=== PATIENT | male | born 1995 | race Caucasian/White ===

== ENCOUNTER 2023-05-31 12:49 | Outpatient (OUT) | payer BC, SELFPAY ==
--- NOTE | 2023-05-31 12:56 | US_ITS ---
The [address] [address] Patient Name: GRAY GOMEZ MRN: [id number] date: 1995 Sex: M Assigned Patient Location: Current Patient Location: Accession/Order Number: [id number] Exam Date: 05/31/2023 13:00 Report Date: 06/01/2023 04:26 At the request of: SHARMILA MCDOWELL Procedure: US scrotum EXAMINATION: US scrotum HISTORY: Testicular Pain ; lump superior to right testicle for 2 months; bursectomy 8 months ago COMPARISON: No relevant comparison available. TECHNIQUE: High-resolution sonographic imaging of the scrotum and contents was performed. FINDINGS: RIGHT: TESTICLE: Homogeneous echotexture. No visible mass. Color Doppler flow is present. Spectral Doppler demonstrates normal arterial waveform and flow, 4/2 cm/s (PSV/EDV), and normal venous wave flow averaging 2 cm/s. EPIDIDYMIS: Incidental 5 mm cyst within head of epididymis. OTHER: Within the inguinal regions cephalad to the testicle is an irregular heterogeneous hypoechoic 1.0 x 0.8 x 0.8 cm area; possibly scarring. LEFT: TESTICLE: Homogeneous echotexture. No visible mass. Color Doppler flow is present. Spectral Doppler demonstrates arterial waveform and flow, 3/2 cm/s (PSV/EDV), and normal venous flow averaging 1 cm/s. EPIDIDYMIS: Normal size and echogenicity. OTHER: Trace amount of free fluid. US/US scrotum IMPRESSION: 1. Small heterogeneous hypoechoic area within the right inguinal region corresponding to patient's palpable lump; scar tissue versus mass. 2. No suspicious abnormality of the testicles or epididymides. Electronically authenticated by: ASIA FRANZ Date: 06/01/2023 04:26
== END 2023-05-31 12:50 | disposition home or self-care (01) ==
LOC: US 12:51
PROVIDERS: PCP Nurse Practitioner Family; Visit Provider Urology
DX: N50.819 Testicular pain, unspecified (principal)
CPT/HCPCS: 76870

== ENCOUNTER 2023-07-26 12:21 | Outpatient (OUT) | payer BC, SELFPAY ==
--- NOTE | 2023-07-26 13:08 | PM.PRESUREVA ---
History of Present Illness History of Present Illness Chief complaint: right scrotal mass or cyst Narrative: Patient presents for preadmission testing. Please see HPI from Dr. Dodson dated 07/06/2023. Review of Systems ROS Narrative Please see ROS from Dr. Dodson dated 07/06/2023. 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 Smoking status: Never smoker Non-prescribed substance use: denies use Previous occupational history: Customer Service Highest level of school completed/degree received: high school graduate Meds Home Medications and Allergies Allergies Allergy/AdvReac Type Severity Reaction Status Date / Time No Known Drug Allergies Allergy Verified 07/26/23 12:42 Exam Narrative Exam Narrative: Constitutional: Awake, alert, comfortable, well-appearing, nontoxic, interactive, vital signs as charted Head: Normocephalic, atraumatic Neck: Supple, normal appearance, normal range of motion, no meningeal signs, no lymphadenopathy Respiratory: No respiratory distress, breath sounds clear Cardiovascular: Regular rate and rhythm, strong and regular heart tones Musculoskeletal: Normal gait, no swelling or edema Skin: No rashes or induration, no lesions, only visible skin inspected Neuro: No neurological deficits, normal sensation Psychiatric: Oriented ?3, normal affect Assessment and Plan Assessment and Plan (1) Scrotal mass: (2) Sperm granuloma: Plan Excision of right sperm granuloma scheduled with Dr. Dodson 08/04/2023
[2023-07-26 13:15] LABS: Basophils Absolute Auto 0.1 10^3/uL (0.0-0.1); Basophils Percent Auto 1.1 % (0.2-2.0); Eosinophils Absolute Auto 0.1 10^3/uL (0.0-0.7); Eosinophils Percent Auto 1.3 % (0.9-7.0); Hematocrit 46.4 % (42.0-54.0); Hemoglobin 16.2 g/dL (14.0-18.0); Immature Granulocytes Abs Auto 0.01 10^3/uL (0.00-0.03); Immature Granulocytes Pct Auto 0.2 % (0.0-0.5); Lymphocytes Absolute Auto 1.8 10^3/uL (1.2-3.8); Lymphocytes Percent Auto 29.4 % (20.5-60.0); Mean Corpuscular HGB Conc 34.9 g/dL (29.9-35.2); Mean Corpuscular Hemoglobin 29.6 pg (25.9-34.0); Mean Corpuscular Volume 84.8 fL (80.0-94.0); Mean Platelet Volume 9.4 fL (9.5-13.5); Monocytes Absolute Auto 0.4 10^3/uL (0.3-0.8); Monocytes Percent Auto 6.2 % (1.7-12.0); Neutrophils Absolute Auto 3.8 10^3/uL (1.4-6.5); Neutrophils Percent Auto 61.8 % (43.0-75.0); Platelet Count 260 10^3/uL (150-450); Red Blood Count 5.47 10^6/uL (4.70-6.10); Red Cell Distribution Width 11.9 % (11.0-15.0); White Blood Count 6.2 10^3/uL (4.0-11.0)
[2023-07-26 13:23] LABS: Anion Gap 13.9; BUN Creatinine Ratio 15.7; Calcium 9.5 mg/dL (8.5-10.1); Carbon Dioxide 29.2 mmol/L (21.0-32.0); Chloride 102 mmol/L (98-107); Estimated GFR (African America >60 (>=60); Estimated GFR (Non-African Ame >60 (>=60); Glucose 94 mg/dL (74-106); Potassium 4.1 mmol/L (3.5-5.1); Sodium 141 mmol/L (136-145)
[2023-07-26 13:27] LABS: INR 1.01; Partial Thromboplastin Time 27.4 sec (22.3-36.2); Prothrombin Time 10.7 sec (9.0-11.6)
== END 2023-07-26 12:22 | disposition home or self-care (01) ==
LOC: PST 12:24
PROVIDERS: PCP Nurse Practitioner Family; Visit Provider Urology
DX: Z01.812 Encounter for preprocedural laboratory examination (principal); N50.89 Other specified disorders of the male genital organs
CPT/HCPCS: 80048; 85025; 85610; 85730; G0463

== ENCOUNTER 2023-08-04 07:53 | Day surgery (SDC) | payer BC, SELFPAY ==
[2023-07-26 13:02] VITALS: BP 143/75; PULSE 71; RESP 14; TEMP 36.3; O2SAT 97; BMI 26.8
[2023-08-04] VITALS (12 sets, daily range): BP systolic 105–120; BP diastolic 59–94; PULSE 84–102; RESP 10–20; TEMP 36.4; O2SAT 94–100
[2023-08-04] MEDS: LACTATED RINGER'S SOLUTION 1,000 ML 50 ML IV (08:18)
[2023-08-04] MEDS: CEFAZOLIN SODIUM/DEXTROSE,ISO 1 GM/50 ML IV.SOLN IV (08:54)
[2023-08-04] MEDS: BUPIVACAINE HCL 0.25% PF 25 MG/10 ML VIAL INJ (09:11)
[2023-08-04] MEDS: BACITRACIN 0.9 GM PACKET 1 PACKET TOPICAL ×2 (09:48→10:08)
--- NOTE | 2023-08-04 10:09 | P.URON_ITS ---
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 He has noticed a hard lump in his right hemiscrotum. It was painful and bothersome for him. He was desirous for excision of this resumed sperm granuloma. Detailed description of Procedure: patient was brought to the operating room and placed on the operating room table in the supine position. Timeout was done by all parties in the room. We all agreed upon the patient's identification and the planned procedures for this patient. Gen. anesthesia was then administered via LMA. The genitalia were sterilely prepped and draped in the usual fashion. I started by palpating the right proximal hemiscrotal mass. I then used a 15 blade scalpel and made an incision over it. I then bluntly dissected down to the area. It was grasped with an Allis clamp. I then used the needle-tipped Bovie cautery to dissect around this and free up the mass. Both ends of the vasa were then identified and grasped with a hemostat. The mass seemed to be adjacent to the proximal end of the vasectomy site. It was excised in full and sent for permanent sections. Both ends of the vasa were then freshened up and coagulated with the Bovie cautery and tied with a 2-0 Vicryl tie. Small bleeders were coagulated with the needle tip Bovie cautery. Upon completion there was no evidence of bleeding. The ends of the vasa were allowed to fall back into the hemiscrotumat different levels. The dartos layer was then closed with 3-0 Vicryl in a running fashion. The skin was closed with 4-0 Vicryl in a running fashion. Bacitracin ointment and sterile fluffs along with a scrotal support were then applied. He was then [facility] and wheeled to PACU in stable condition.
--- NOTE | 2023-08-04 11:21 | PC.NURSE ---
Denies urge to void
--- NOTE | 2023-08-04 11:50 | PC.NURSE ---
Denies urge to void
--- NOTE | 2023-08-04 12:15 | PC.NURSE ---
Up to bathroom and voids clear yellow without difficulty
== END 2023-08-04 12:30 | disposition home or self-care (01) ==
PROVIDERS: PCP Nurse Practitioner Family; Visit Provider Urology
PROC: (CPT 55899; principal; 2023-08-04 09:00)
DX: L92.8 Other granulomatous disorders of the skin and subcutaneous tissue (principal); N43.3 Hydrocele, unspecified
CPT/HCPCS: 55899; 36415; 88305; J2704